=== PATIENT | male | born 1965 | race Caucasian/White ===

== ENCOUNTER → 2018-08-02 14:10 | Outpatient (CLI) | payer SELFPAY ==
[2018-08-02 14:29] LABS: Lyme Ab Screen Interpretation REF LAB
[2018-08-05 17:08] LABS: Lyme Scn Total Ab w/Rflx <0.91 ISR (0.00-0.90)
== END ==
DX: Z04.3 Encounter for examination and observation following other accident (principal); W57.XXXA Bitten or stung by nonvenomous insect and other nonvenomous arthropods, initial encounter
CPT/HCPCS: 36415; 86618

== ENCOUNTER → 2018-11-19 09:20 | Outpatient (CLI) | payer SELFPAY ==
[2018-11-19 08:51] VITALS: BMI 29.9
[2018-11-19 12:21] LABS: Absolute Lymphocyte Count 2.93 X10^3/uL (0.83-4.51); Absolute Neutrophil Count 9.6 X10^3/uL (2.0-7.7); Basophil# 0.04 X10^3/uL; Basophil% 0.3 % (0-1); Eosinophil# 0.35 X10^3/uL; Eosinophils% 2.6 % (0-5); Hemoglobin 14.7 g/dL (13.0-16.5); Lymphocyte # 2.93 X10^3/ul (4.0); Lymphocyte % 21.5 % (19-41); Mean Corp Hgb Conc 33.4 g/dL (32-36); Mean Corpuscular Volume 98.7 fL (80-94); Mean Platelet Vol. 9.3 fl (6.2-12.0); Monocyte# 0.75 X10^3/uL; Monocyte% 5.5 % (0-10); NRBC Flagged by Analyzer 0 % (0-5); Neutrophil # 9.55 X10^3/uL (2.7-7.7); Neutrophil % 69.9 % (47-70); Platelet Count 281 K/mm3 (150-450); RBC Distribution Width CV 12.6 % (11.6-14.6); RBC Distribution Width SD 45.6 fl (35.1-43.9); Red Blood Count 4.46 M/mm3 (4.6-6.2); White Blood Count 13.7 K/mm3 (4.4-11.0)
[2018-11-19 12:38] LABS: Anion Gap 4 (5-15); BUN 27 mg/dL (7-18); BUN/Creat Ratio 23.3 RATIO (10-20); Calcium,Total 8.8 mg/dL (8.5-10.1); Chloride 109 mmol/L (98-107); Cholesterol 214 mg/dL (200); Creatinine, Serum 1.16 mg/dL (0.70-1.30); EST Glomerular Filtration Rate 70 mL/min (>60); Est Glom Filt Rate - Afr Amer 85 mL/min (>60); Glucose 96 mg/dL (74-106); High Density Lipoprotein 42 mg/dL; Potassium 4.1 mmol/L (3.5-5.1); Sodium Level 137 mmol/L (136-145); Triglycerides 109 mg/dL; Very Low Density Lipoprotein 22 mg/dL (5-40)
== END ==
PROVIDERS: Visit Provider Internal Medicine
DX: Z00.00 Encounter for general adult medical examination without abnormal findings (principal)
CPT/HCPCS: 36415; 80048; 80061; 85025

== ENCOUNTER 2025-03-17 18:14 | Emergency (ER) | payer SELFPAY ==
[2025-03-17 18:16] VITALS: BP 149/98; PULSE 124; RESP 18; TEMP 35.8; O2SAT 100; BMI 29.7
[2025-03-17 18:35] VITALS: BP 138/105; PULSE 110; RESP 18; O2SAT 98
--- NOTE | 2025-03-17 19:02 | EDS_ITS ---
HPI History of Present Illness Chief Complaint: Constipation Detail of Chief Complaint: Constipation, abdominal bloating and distention Informant: patient and spouse/S.O. Onset/Context/Timing Onset: Days (Last bowel movement March 14) Context: Gradual Onset Timing: Continuous Quality: Patient has not had a bowel movement for 3 days. He states has not passed Location: Abdomen Current Severity: Moderate Maximum Severity: Severe Worsened by: Nothing specific Relieved by: Nothing Associated Symptoms Associated Symptoms: Nausea and discomfort Narrative Narrative: Patient is a 59-year-old male. He has no history of abdominal surgery. He has not had a bowel movement since Thursday. He states he normally goes daily. He does endorse some mild intermittent nausea without vomiting. He has not passed gas today. He feels bloated. He denies fever, chills night sweats. He denies cardiac respiratory symptoms. He denies urologic symptoms. He has not had problems with constipation in the past. 2 days ago gave him 2 Dulcolax with no results. She gave him 3 Dulcolax a day with no results. He has no history of ileus or bowel obstruction. Prior similar symptoms: No Recent Illness/Hospitalization: No PFSH PFSH Medical History Bone fracture Home Medications Medication Instructions Recorded Last Taken Type omega 8-lqr-pcj-fish oil [Extreme PO 10/20/18 Unknown History [place]-3] Allergy/AdvReac Type Severity Reaction Status Date / Time No Known Allergies Allergy Verified 03/17/25 18:18 Family History Grandfather Blood clot in vein Brother Heart disease Pacemaker Mother Breast cancer Grandmother CVA (cerebral vascular accident) Surgical History History of tonsillectomy and adenoidectomy Social History (Updated 03/17/25 @ 19:[address] Chapo Cotter MD) household members: spouse Smoking Status: Current every day smoker tobacco type: cigarettes alcohol intake: current alcohol intake frequency: holidays/special occasions only substance use type: does not use what type of physical activity do you participate in: none ROS ROS ED Constitutional Constitutional ED: Denies chills, fever(s), subjective, sweats or weight loss Eyes Eyes: Denies blurry vision, change in vision or diplopia ENT ENT ED: Denies ear pain or rhinorrhea Cardiovascular Cardiovascular: Denies chest pain or palpitations Respiratory/Chest Respiratory/Chest: Denies cough, dyspnea or dyspnea on exertion Gastrointestinal Gastrointestinal: Reports abdominal pain, constipation and nausea; Denies diarrhea, melena or vomiting Genitourinary Genitourinary ED: Denies dysuria, hematuria or urinary frequency Musculoskeletal Musculoskeletal: Denies arthralgias, back pain or myalgias Hematologic/Lymphatic Hematologic/Lymphatic: Reports systems reviewed and no addt'l complaints, except as documented EXAM Physical Exam Const Vital Signs: 03/17/25 18:16 03/17/25 18:35 03/17/25 19:41 Temperature 96.5 F L Temperature Source Temporal Pulse Rate 124 H 110 H 103 H Respiratory Rate 18 18 Blood Pressure 149/98 H 138/105 H Blood Pressure Mean 115 116 Pulse Ox 100 98 96 Oxygen Delivery Method Room Air Room Air 03/17/25 21:00 Temperature Temperature Source Pulse Rate 102 H Respiratory Rate 19 H Blood Pressure 175/112 H Blood Pressure Mean 133 Pulse Ox 98 Oxygen Delivery Method Room Air Positive well nourished and well developed Constitutional Narrative: Vitals are marked for elevated blood pressure, heart rate. His temperature is 96.5. He is not tachypneic nor is he hypoxic. He does appear uncomfortable. General Appearance ED: well developed; Negative for pallor HEENT Reports moist mucous membranes HEENT Narrative: Head is atraumatic normocephalic. Ears normal. Nares patent Eyes PERRL and EOMs intact bilaterally General Eye ED: Negative for pale conjunctiva or scleral icterus Neck no lymphadenopathy, supple and no JVD Resp normal respiratory effort and clear to auscultation bilaterally Cardio regular rhythm, S1 normal heart sound, S2 normal heart sound and no murmurs Rate: tachycardic GI no masses; Negative for normal to inspection, nondistended, normoactive bowel sounds, non-tender, non-distended or hepatosplenomegaly GI Narrative: Abdomen is slightly distended and tympanitic. Bowel sounds are diminished. Patient has some mild tenderness to deep palpation. There is no guarding or rebound tenderness. There is no hepatosplenomegaly. Negative clinical Childesr sign. There is no inguinal adenopathy or mass noted. There is no fissures, fistulas or hemorrhoids noted on visualization of the anus. His prostate is normal size and nontender. There was no stool in the rectal vault. Material that was noted on gloved finger was brown. Back/Spine no CVA tenderness Extremity normal to inspection General Extremety ED: Negative for edema or tenderness General Extremity: Negative for edema Neuro oriented x3 and CN's II-XII intact bilaterally Sensorium / Orientation: alert Psych mental status grossly normal Skin no rashes or lesions noted, no wounds and skin turgor normal General Skin Exam: Negative for jaundice or pallor MDM MDM MDM Narrative Medical decision making narrative: Suspect patient has obstipation. Will obtain abdominal films to see if there is any abnormal gas pattern. Since she has had no prior history of surgery doubt obstruction. Will obtain basic metabolic panel to assess his electrolytes and renal function. He was administered morphine for his discomfort. Lab Data Attestation: I reviewed the patient's lab results. Lab results narrative: Patient's white count is elevated 18.4 thousand with shift. H&H is normal. Indices are slightly elevated. Competence metabolic panel with slight elevation of glucose 128. CO2 and anion gap are essentially normal. Labs: Laboratory Results - last 24 hr 03/17/25 19:20 WBC 18.4 H RBC 4.95 Hgb 16.0 Hct 47.2 MCV 95.4 H MCH 32.3 H MCHC 33.9 RDW Std Deviation 45.6 H RDW Coeff of Kimberlee 13.0 Plt Count 318 MPV 8.4 Immature Gran % (Auto) 0.400 Neut % (Auto) 79.8 H Lymph % (Auto) 11.4 L [place] % (Auto) 7.3 Eos % (Auto) 0.8 Baso % (Auto) 0.3 Absolute Neuts (auto) 14.7 H Absolute Lymphs (auto) 2.10 Nucleated RBC % 0 Sodium 134 Potassium 4.6 Chloride 100 Carbon Dioxide 20.5 L Anion Gap 14 BUN 13 Creatinine 1.15 Estim Creat Clear Calc 85.51 Est GFR (MDRD) Non-Af 74 BUN/Creatinine Ratio 11.7 Glucose 128 H Calcium 9.7 Total Bilirubin 0.96 AST 16 ALT 16 Alkaline Phosphatase 89 Total Protein 8.2 Albumin 4.5 Globulin 3.7 Albumin/Globulin Ratio 1.2 Lipase 73 Lipase is normal. He is not a drinker. Suspect this is all due to obstipation. Radiography Chest X-Ray - ED: Read by ED Physician (Chest pressure is normal cardiac silhouette size. Lung parenchyma is unremarkable. Hilum is unremarkable. Osseous structures with no acute process. Patient has significant fecal load noted in ascending colon. There are some nonsevere gas patterns noted.) Diagnostic Testing: Clinical Impression(s) from Imaging Studies Acute Abdomen Series 03/17/25 19:03 IMPRESSION: Dilated colon with air-fluid levels, concerning for bowel obstruction and with possible left colon wall thickening. Recommend CT for further evaluation. Reading Location: [facility] Abdomen/Pelvis CT 03/17/25 19:56 IMPRESSION: 1. Mild stranding surrounding the pancreatic head, and mild wall thickening of the adjacent duodenum. Findings may represent acute pancreatitis or duodenitis, correlate with labs and exam. 2. Mildly dilated right and transverse colon, without focal transition point. Findings may represent ileus, which could be reactive related to the pancreatic findings. Obstruction felt less likely at this time, consider Surgical consultation if concern persists or symptoms worsen. 3. Hiatal hernia. Reading Location: [facility] Treatment and Re-Evaluation :: Patient was reexamined. He still has significant discomfort and spite of the morphine. With the tenderness elevated white count and concerns raised by radiologist will obtain CT of the abdomen and pelvis with IV contrast. Comments:: Patient received magnesium citrate in the emergency department. And he was discharged with appropriate home-going instructions. Discharge Plan Triage Chief Complaint: Constipation ED Provider: Chapo Cotter Dx/Rx/DC Orders Clinical Impression: Obstipation, Elevated blood-pressure reading without diagnosis of hypertension, Sinus tachycardia seen on court monitor Instructions: ED Constipation (Adult) Prescriptions: No Action omega 9-tqg-jjt-fish oil [Extreme [place]-3] PO Primary Care Provider: Deepak Peterson Referrals: Deepak Peterson MD [Primary Care Provider, Internal Medicine] - As Needed Activity Restrictions/Additional Instructions: 4 hours after you drink the mag citrate 1 cap of MiraLAX and a full glass of your nonalcoholic favorite beverage. 1 cap of MiraLAX in your favorite beverage every 1-2 hours until you have results. Print Language: Tamazight Disposition Disposition: Home, Self Care
--- NOTE | 2025-03-17 19:03 | RAD_ITS ---
PROCEDURE: ACUTE ABDOMEN INC CHEST 03/17/2025 REASON FOR EXAM: PAIN TECHNIQUE: Procedure Code: RADABDCA Modality: DX Procedure: ACUTE ABDOMEN INC CHEST COMPARISON: None FINDINGS: Hardware: None Heart: The heart size is normal. Aortic atherosclerosis. Lungs: No focal consolidation or pleural effusion. Bowel gas: Prominent loops of air-filled bowel in the upper abdomen, with right- sided air-fluid levels. The transverse colon measures up to 7.6 cm in diameter. There is hypodensity outlining the left colon. Free air: No free air. Calcifications: No suspicious calcifications. Bones: There are degenerative changes of the spine. RAD/Acute Abdomen Inc Chest IMPRESSION: Dilated colon with air-fluid levels, concerning for bowel obstruction and with possible left colon wall thickening. Recommend CT for further evaluation. Reading Location: [id number]
--- OUTSIDE RECORDS SUMMARY | 2025-03-17 19:04 | XMS RPT_ITS | CCD ---
Author Organization [employer] [facility] Results Test Name Value Interpretation Reference Range Facil ity Urgent Care Visit Reporton 0 09-21-2020 Urgent Care Visit Report [facility] [address] [place] [address] OFFICE VISIT Date of Service: 09/21/20 MR#: [id number] Acct: [id number] Name: VICTORINO ALCAZAR Rep #: [id number] : 1965 Provider: PHONG Wooten Age/Sex: 55/M Location: [email or web address] Status: Signed Intake Vital Signs 09/21/20 13:59 BMI 29.9 Intake Visit Reasons: DOT PHYSICAL Chief Complaint: Est Care Allergies No Known Allergies Allergy (Unverified 11/19/18 08:48) [facility] Medical History (Updated 09/21/20 @ 14:00 by PHONG Lawler) Bone fracture Surgical History (Updated 11/19/18 @ 08:49 by Carrie Post) History of tonsillectomy and adenoidectomy Family History (Updated 10/20/18 @ 07:43 by Carrie Post) Grandfather Blood clot in vein Brother Heart disease Pacemaker Mother Breast cancer Grandmother CVA (cerebral vascular accident) Social History (Updated 11/19/18 @ 13:[address] 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 Please see corresponding scanned documents. Office Procedures Physical Exam Coding PE Coding DOT PE: Yes Coding Level of Care Code No Charge Diagnoses Encounter for examination required by Department of Transportation (DOT) Z02.89 CPT Codes PE Coding - DOT PE: Yes (DOTPE) Assessment and Plan Assessment and Plan (1) Encounter for examination required by Department of Transportation (DOT): Status: Acute 09/21/20 1400 Date Shimon Enrique Signature: Date (if applicable) CC: Normal [facility] Summary Purpose Family History No Family History Records Found Advance Directives No Advanced Directives Records Found Additional Source Comments (unrecognized sect ion and content) No Status Records Found INFORMATION SOURCE (unrecogn ized section and content) DATE CREATED AUTHOR 09/22/2020 [facility] FOR RECORDS PERTAINING TO PATIENTS WHO ARE OR HAVE BEEN ENROLLED IN A CHEMICAL DEPENDENCY/SUBSTANCEABUSE PROGRAM, SOME INFORMATION MAY BE OMITTED. This clinical summary was aggregated from multiple sources. Caution should be exercised in using it in the provision of clinical care. This summary normalizes information from multiple sources, and as a consequence, information in this document may materially change the coding, format and clinical context of patient data. In addition, data may be omitted in some cases. CLINICAL DECISIONS SHOULD BE BASED ON THE PRIMARY CLINICAL RECORDS. [employer] provides no warranty or guarantee of the accuracy or completeness of information in this document.
[2025-03-17 19:24] LABS: Hematocrit 47.2 % (40-54); Hemoglobin 16.0 g/dL (13.0-16.5); Immature Granulocytes Count 0.080 X10^3/uL (0.0-0.0); Mean Corp Hgb Conc 33.9 g/dL (32-36); Mean Corpuscular Volume 95.4 fL (80-94); Mean Platelet Vol. 8.4 fl (6.2-12.0); NRBC Flagged by Analyzer 0 % (0-5); Platelet Count 318 K/mm3 (150-450); RBC Distribution Width CV 13.0 % (11.6-14.6); RBC Distribution Width SD 45.6 fl (35.1-43.9); Red Blood Count 4.95 M/mm3 (4.6-6.2); White Blood Count 18.4 K/mm3 (4.4-11.0)
[2025-03-17 19:41] VITALS: PULSE 103; O2SAT 96
[2025-03-17 19:46] LABS: AST(SGOT) 16 U/L (<=37); Alanine Aminotransfer ALT/SGPT 16 U/L (<=46); Albumin, Serum 4.5 g/dL (3.5-5.0); Alkaline Phosphatase 89 U/L (40-129); Anion Gap 14 (5-15); BUN 13 mg/dL (4-19); BUN/Creat Ratio 11.7 RATIO (10-20); Calcium,Total 9.7 mg/dL (7.6-11.0); Carbon Dioxide 20.5 mmol/L (21.0-32.0); Chloride 100 mmol/L (98-108); Estimated Creatinine Clearance 85.51 ml/min (50-250); Globulin 3.7 g/dL (2.2-4.2); Glucose 128 mg/dL (70-99); Potassium 4.6 mmol/L (3.3-5.1)
--- NOTE | 2025-03-17 19:56 | CT_ITS ---
PROCEDURE: ABDOMEN/PELVIS W IV CONT ONLY 03/17/2025 REASON FOR EXAM: ABDOMINAL DISTENTION, LEUKOCYTOSIS, TECHNIQUE: Procedure Code: [id number] Modality: CT Procedure: ABDOMEN/PELVIS W IV CONT ONLY Coronal and Sagittal reconstruction series were provided. CONTRAST: Isovue 370 VOLUME: 100 mL One or more dose reduction techniques were used (e.g., Automated exposure control, adjustment of the mA and/or kV according to patient size, use of iterative reconstruction technique. RADIATION DOSE SUMMARY: CTDlvol: 20.6 mGy DLP: 1276 mGycm COMPARISON: Abdominal radiographs 03/17/2025 FINDINGS: Lung bases: Bibasilar dependent atelectasis Liver: Subcentimeter lesion in the right hepatic lobe, likely a simple cyst. Gallbladder: Unremarkable Spleen: Unremarkable Pancreas: Mild stranding surrounding the pancreatic head. Adrenals: Unremarkable Kidneys: No hydronephrosis or stone. Bladder: Unremarkable Reproductive Organs: Unremarkable Bowel: Hiatal hernia. There is mild wall thickening of the descending duodenum. Prominent distention of the cecum up to 7 cm in diameter and containing air feces level, and of the transverse colon which measures up to 6 cm in diameter. No focal transition point. Normal caliber of the left colon. Sigmoid colon diverticulosis. Appendix: Normal caliber. Lymph nodes: Prominent subcentimeter nodes in the upper abdominal mesentery. Vasculature: Mild diffuse atherosclerotic calcifications are noted. Peritoneum / Retroperitoneum: No free fluid or extraluminal air. Bones: Degenerative changes of the spine. Soft tissues: Trace bilateral gynecomastia. CT/Abdomen/Pelvis W IV Cont ONLY IMPRESSION: 1. Mild stranding surrounding the pancreatic head, and mild wall thickening of the adjacent duodenum. Findings may represent acute pancreatitis or duodenitis, correlate with labs and exam. 2. Mildly dilated right and transverse colon, without focal transition point. Findings may represent ileus, which could be reactive related to the pancreatic findings. Obstruction felt less likely at t his time, consider Surgical consultation if concern persists or symptoms worsen. 3. Hiatal hernia. Reading Location: [id number]
[2025-03-17 21:00] VITALS: BP 175/112; PULSE 102; RESP 19; O2SAT 98
[2025-03-17 21:05] LABS: Lipase 73 U/L (13-75)
[2025-03-17] MEDS: Magnesium Citrate 300 ML PO (21:19)
[2025-03-17 21:24] VITALS: BP 175/112; PULSE 102; RESP 19; TEMP 35.8; O2SAT 98
== END 2025-03-17 21:25 | disposition home or self-care (01) ==
PROVIDERS: Emergency Provider Emergency Medicine; PCP Internal Medicine; Visit Provider Emergency Medicine
DX: K59.00 Constipation, unspecified (principal); R03.0 Elevated blood-pressure reading, without diagnosis of hypertension; R00.0 Tachycardia, unspecified; F17.210 Nicotine dependence, cigarettes, uncomplicated
CPT/HCPCS: 74022; 74177; 80053; 83690; 85025; 96374; 96376; 99283; Q9967; A4216

== ENCOUNTER → 2025-03-29 | Outpatient (CLI) | payer SELFPAY ==
[2025-03-29 12:34] LABS: Hematocrit 40.5 % (40-54); Hemoglobin 13.9 g/dL (13.0-16.5); Immature Granulocytes Count 0.050 X10^3/uL (0.0-0.0); Mean Corp Hgb Conc 34.3 g/dL (32-36); Mean Corpuscular Volume 95.3 fL (80-94); Mean Platelet Vol. 8.3 fl (6.2-12.0); NRBC Flagged by Analyzer 0 % (0-5); Platelet Count 381 K/mm3 (150-450); RBC Distribution Width CV 12.8 % (11.6-14.6); RBC Distribution Width SD 45.0 fl (35.1-43.9); Red Blood Count 4.25 M/mm3 (4.6-6.2); White Blood Count 15.0 K/mm3 (4.4-11.0)
[2025-03-29 13:18] LABS: AST(SGOT) 18 U/L (<=37); Alanine Aminotransfer ALT/SGPT 17 U/L (<=46); Albumin, Serum 3.9 g/dL (3.5-5.0); Alkaline Phosphatase 87 U/L (40-129); Anion Gap 12 (5-15); BUN 16 mg/dL (4-19); BUN/Creat Ratio 15.6 RATIO (10-20); Calcium,Total 9.7 mg/dL (7.6-11.0); Carbon Dioxide 24.9 mmol/L (21.0-32.0); Chloride 102 mmol/L (98-108); Cholesterol 150 mg/dL (<=200); Globulin 3.4 g/dL (2.2-4.2); Glucose 97 mg/dL (70-99); Low Density Lipoprotein Calc. 87 mg/dL; Potassium 4.3 mmol/L (3.3-5.1); Triglycerides 105 mg/dL; Very Low Density Lipoprotein 21 mg/dL (5-40); cholesterol:hdl ratio screen 3.45
[2025-03-29 13:46] LABS: Amylase 186 U/L (28-100); Lipase 139 U/L (13-75)
[2025-03-29 20:25] LABS: CRP 76.00 mg/L (0.0-3.0)
== END | disposition home or self-care (01) ==
PROVIDERS: PCP Internal Medicine; Referring Provider Internal Medicine; Visit Provider Internal Medicine
DX: K85.90 Acute pancreatitis without necrosis or infection, unspecified (principal)
CPT/HCPCS: 36415; 80053; 80061; 82150; 83690; 85025; 86140

== ENCOUNTER → 2025-03-30 | Outpatient (CLI) | payer SELFPAY ==
--- NOTE | 2025-03-30 07:28 | US_ITS ---
PROCEDURE: ABDOMEN LIMITED 03/30/2025 REASON FOR EXAM: RUQ PAIN TECHNIQUE: Procedure Code: USABDL Modality: US Procedure: ABDOMEN LIMITED COMPARISON: CT abdomen and pelvis dated 03/09/2025 FINDINGS: Liver: The liver is normal in size measuring 16 cm in length. There is increased echogenicity of the liver parenchyma seen with diffuse hepatic steatosis. There is no focal liver mass. Patent portal vein with appropriate direction of flow Gallbladder: No stones, sludge, wall thickening or tenderness. Common bile duct: Normal measuring 4.2 mm. Pancreas: Normal Right kidney: Measurement: 10.1 x 5.2 x 4.8 cm. No cortical thinning cysts mass or hydronephrosis. No nephrolithiasis. Peritoneal Findings: No ascites. US/Abdomen Limited IMPRESSION: Hepatic steatosis. No liver mass. Normal gallbladder and biliary tree. Reading Location: [facility]
--- OUTSIDE RECORDS SUMMARY | 2025-03-30 07:28 | XMS RPT_ITS | CCD ---
Author Organization [employer] [facility] Results Test Name Value Interpretation Reference Range Facil ity Urgent Care Visit Reporton 0 09-21-2020 Urgent Care Visit Report [facility] [address] [place] [address] OFFICE VISIT Date of Service: 09/21/20 MR#: [id number] Acct: [id number] Name: VICTORINO ALCAZAR Rep #: [id number] : 1965 Provider: PHONG Wooten Age/Sex: 55/M Location: [email or web address] Status: Signed Intake Vital Signs 09/21/20 13:59 BMI 29.9 Intake Visit Reasons: DOT PHYSICAL Chief Complaint: Est Care Allergies No Known Allergies Allergy (Unverified 11/19/18 08:48) [facility] Medical History (Updated 09/21/20 @ 14:00 by [...] Enrique Signature: Date (if applicable) CC: Normal [facility] Summary Purpose Family History No Family History Records Found Advance Directives No Advanced Directives Records Found Additional Source Comments (unrecognized sect ion and content) No Status Records Found INFORMATION SOURCE (unrecogn ized section and content) DATE CREATED AUTHOR 09/22/2020 [facility] FOR RECORDS PERTAINING TO PATIENTS WHO [...] BE BASED ON THE PRIMARY CLINICAL RECORDS. [employer] provides no warranty or guarantee of the accuracy or completeness of information in this document.
== END | disposition home or self-care (01) ==
PROVIDERS: PCP Internal Medicine; Referring Provider Internal Medicine; Visit Provider Internal Medicine
DX: R10.11 Right upper quadrant pain (principal); K85.90 Acute pancreatitis without necrosis or infection, unspecified
CPT/HCPCS: 76705

== ENCOUNTER → 2025-04-03 | Outpatient (CLI) | payer SELFPAY ==
[2025-04-03 08:28] LABS: Hematocrit 40.4 % (40-54); Hemoglobin 13.6 g/dL (13.0-16.5); Immature Granulocytes Count 0.020 X10^3/uL (0.0-0.0); Mean Corp Hgb Conc 33.7 g/dL (32-36); Mean Corpuscular Volume 96.7 fL (80-94); Mean Platelet Vol. 8.3 fl (6.2-12.0); NRBC Flagged by Analyzer 0 % (0-5); Platelet Count 423 K/mm3 (150-450); RBC Distribution Width CV 12.6 % (11.6-14.6); RBC Distribution Width SD 45.0 fl (35.1-43.9); Red Blood Count 4.18 M/mm3 (4.6-6.2); White Blood Count 9.4 K/mm3 (4.4-11.0)
[2025-04-03 09:03] LABS: CRP 8.09 mg/L (0.0-3.0)
== END | disposition home or self-care (01) ==
PROVIDERS: PCP Internal Medicine; Referring Provider Internal Medicine; Visit Provider Internal Medicine
DX: K85.90 Acute pancreatitis without necrosis or infection, unspecified (principal)
CPT/HCPCS: 36415; 85025; 86140